=== PATIENT | male | born 1960 | race Caucasian/White ===

== ENCOUNTER 2024-05-12 10:53 | Emergency (ER) | payer MEDICAID ==
[~2024-05-12] VITALS: Ht 162.6 cm; Wt 86.2 kg
[2024-05-12 11:06] VITALS: BP 138/75; PULSE 90; RESP 20; TEMP 98.2; O2SAT 99
[2024-05-12] MEDS: ONDANSETRON 4 MG ODT PO ONE (12:24)
[2024-05-12] MEDS ORDERED: ONDA-188 PO (12:30)
[2024-05-12 12:41] VITALS: BP 125/65; PULSE 78; RESP 19; O2SAT 99
== END 2024-05-12 13:08 | disposition home or self-care (01) ==
LOC: MED 10:53
DX: R11.10 Vomiting, unspecified (principal); R03.0 Elevated blood-pressure reading, without diagnosis of hypertension; Z79.899 Other long term (current) drug therapy
CPT/HCPCS: 82948; 99283; Q0162